=== PATIENT | female | born 1935 | race Caucasian/White ===

== ENCOUNTER 2017-07-25 15:15 | Inpatient (IN) | payer MEDICARE ==
[~2017-07-25] VITALS: Ht 166.4 cm; Wt 72.9 kg
[2017-07-25] VITALS (8 sets, daily range): BP systolic 129–154; BP diastolic 65–86; PULSE 66–91; RESP 16–18; TEMP 96.5–97.8; O2SAT 97–100
[~2017-07-25 15:15] MED LIST: ATOR10 PO; COZA50TA PO; GALA12TA6 PO; HCTZ25 PO; NAME10TA PO; [UNRECOGNIZED DRUG - CODE]
[2017-07-25] MEDS ORDERED: SODIUM CHLORIDE 0.9% FLUSH 10 ML FLUSH IVF PRN (15:30)
[2017-07-25] MEDS ORDERED: HYDR25TA5 PO (15:50)
[2017-07-25] MEDS ORDERED: NAME10TA PO (15:50)
[2017-07-25] MEDS ORDERED: METF500T PO (15:50)
[2017-07-25] MEDS ORDERED: ATOR10TA15 PO (15:50)
[2017-07-25] MEDS ORDERED: LOSA50TA PO (15:50)
[2017-07-25] MEDS ORDERED: GALA12TA PO (15:50)
[2017-07-25] MEDS ORDERED: CLAR10CA3 PO (15:50)
[2017-07-25] MEDS ORDERED: LACTCAP8 PO (15:50)
[2017-07-25] MEDS ORDERED: PANT40TA3 PO (15:50)
[2017-07-25] MEDS ORDERED: ONDA8TAB7 PO (15:50)
--- NOTE | 2017-07-25 15:52 | PD ---
HPI Chief Complaint: Altered Mental Status Time Seen by Provider: 15:28 Travel History International Travel<30 days: No Contact w/Intl Traveler<30days: No Traveled to known affect area: No History of Present Illness HPI 81-year-old female patient with history of Alzheimer's dementia, presents to the ER today brought in by her daughter, apparently had relatives visiting at home and woke up at 8:40 AM looking normal but at 9 AM they noted that she was stumbling and was having difficulty walking, had be helped up. She was also more lethargic than usual and more disoriented according to the daughter. She currently is a poor historian, does not remember exactly what happened but states that she just does not feel right. She denies any chest pains, shortness of breath, vomiting, or abdominal pain or other symptoms. Modifying Factors: None Associated Signs & Symptoms: Does not feel right, stumbling, difficulty walking Risk Factors: Elderly PFSH Past Medical History Alzheimer's Disease: Yes (diagnosed in 2011) Anemia: Yes Arthritis: Yes High Cholesterol: Yes Diminished Hearing: No Hypertension: Yes ?: Not Menopausal: Yes Tubal Ligation: Yes Past Surgical History Abdominal Surgery: Yes (12" COLON RECSECTION FOR POLYPS) Oral Surgery: Yes (WISDOM TEETH) Tonsillectomy: Yes Social History Alcohol Use: No Tobacco Use: No Substance Use: No Allergies-Medications (Allergen,Severity, Reaction): Coded Allergies: indomethacin (Unverified Allergy, Severe, MUSCLE ACHES, 02/28/17) Uncoded Allergies: CLINORIL (Allergy, Severe, VISUAL DISTURBANCES, 07/15/04) Reported Meds & Prescriptions Reported Meds & Active Scripts Active Reported Claritin (Loratadine) 10 Mg Cap 10 Mg PO 2XWEEK Ondansetron (Ondansetron HCl) 8 Mg Tab 8 Mg PO DIRECTED Probiotic (Lactobacillus Acidophilus) 10 Billion Cell Cap 1 Cap PO HS Metformin (Metformin HCl) 500 Mg Tab 500 Mg PO DAILY With a meal Pantoprazole (Pantoprazole Sodium) 40 Mg Tab 40 Mg PO DAILY Namenda (Memantine) 10 Mg Tab 10 Mg PO BID Galantamine (Galantamine Hydrobromide) 12 Mg Tab 12 Mg PO BID Losartan (Losartan Potassium) 50 Mg Tab 50 Mg PO BID Atorvastatin (Atorvastatin Calcium) 10 Mg Tab 10 Mg PO HS Hydrochlorothiazide 25 Mg Tab 25 Mg PO DAILY Review of Systems ROS Limitations: Altered Mental Status Physical Exam Narrative GENERAL: Well-developed elderly white female patient currently in mild distress. Awake and oriented 2, not oriented to time and date. SKIN: Focused skin assessment warm/dry. HEAD: Atraumatic. Normocephalic. EYES: Pupils equal and round. No scleral icterus. No injection or drainage. ENT: No nasal bleeding or discharge. Mucous membranes pink and moist. NECK: Trachea midline. No JVD. Supple. CARDIOVASCULAR: Regular rate and rhythm. No murmur appreciated. Pulses are present and equal bilaterally. RESPIRATORY: No accessory muscle use. Clear to auscultation. Breath sounds equal bilaterally. GASTROINTESTINAL: Abdomen soft, non-tender, nondistended. Hepatic and splenic margins not palpable. MUSCULOSKELETAL: No obvious deformities. No clubbing. No cyanosis. No edema. NEUROLOGICAL: Awake and lethargic, disoriented. There is notable left arm and leg weakness, barely able to lift it up off the bed. Notable facial asymmetry. Normal speech. PSYCHIATRIC: Appropriate mood and affect; insight and judgment poor. Data Data Last Documented VS Vital Signs Date Time Temp Pulse Resp B/P (MAP) Pulse Ox O2 Delivery O2 Flow Rate FiO2 07/25/17 16:31 71 18 144/66 (92) 98 Room Air 07/25/17 15:18 97.8 Orders Orders Electrocardiogram (07/25/17 15:28) Prothrombin Time / Inr (Pt) (07/25/17 15:28) Act Partial Throm Time (Ptt) (07/25/17 15:28) Complete Blood Count With Diff (07/25/17 15:28) Comprehensive Metabolic Panel (07/25/17 15:28) Troponin I (07/25/17 15:28) Urinalysis - C+S If Indicated (07/25/17 15:28) Ct Brain W/O Iv Contrast(Rout) (07/25/17 15:28) Cta Brain W Iv Contrast W 3d (07/25/17 15:28) Chest, Single Ap (07/25/17 15:28) Ecg Monitoring (07/25/17 15:28) Iv Access Insert/Monitor (07/25/17 15:28) Oximetry (07/25/17 15:28) Sodium Chloride 0.9% Flush (Ns Flush) (07/25/17 15:30) Cta Neck W Iv Contrast W 3d (07/25/17 ) Iohexol 350 Inj (Omnipaque 350 Inj) (07/25/17 18:03) Admit Order (Ed Use Only) (07/25/17 18:41) Labs Laboratory Tests Test 07/25/17 15:30 07/25/17 16:45 White Blood Count 9.8 TH/MM3 Red Blood Count 4.25 MIL/MM3 Hemoglobin 12.8 GM/DL Hematocrit 38.8 % Mean Corpuscular Volume 91.2 FL Mean Corpuscular Hemoglobin 30.0 PG Mean Corpuscular Hemoglobin Concent 32.9 % Red Cell Distribution Width 11.7 % Platelet Count 346 TH/MM3 Mean Platelet Volume 7.6 FL Neutrophils (%) (Auto) 77.8 % Lymphocytes (%) (Auto) 16.3 % Monocytes (%) (Auto) 5.2 % Eosinophils (%) (Auto) 0.3 % Basophils (%) (Auto) 0.4 % Neutrophils # (Auto) 7.7 TH/MM3 Lymphocytes # (Auto) 1.6 TH/MM3 Monocytes # (Auto) 0.5 TH/MM3 Eosinophils # (Auto) 0.0 TH/MM3 Basophils # (Auto) 0.0 TH/MM3 CBC Comment DIFF FINAL Differential Comment Prothrombin Time 10.5 SEC Prothromb Time International Ratio 1.0 RATIO Activated Partial Thromboplast Time 23.7 SEC Blood Urea Nitrogen 25 MG/DL Creatinine 0.97 MG/DL Random Glucose 215 MG/DL Total Protein 7.2 GM/DL Albumin 3.5 GM/DL Calcium Level 9.2 MG/DL Alkaline Phosphatase 148 U/L Aspartate Amino Transf (AST/SGOT) 15 U/L Alanine Aminotransferase (ALT/SGPT) 23 U/L Total Bilirubin 0.6 MG/DL Sodium Level 138 MEQ/L Potassium Level 3.1 MEQ/L Chloride Level 101 MEQ/L Carbon Dioxide Level 27.5 MEQ/L Anion Gap 10 MEQ/L Estimat Glomerular Filtration Rate 55 ML/MIN Troponin I LESS THAN 0.02 NG/ML Urine Collection Type CATH Urine Color YELLOW Urine Turbidity CLEAR Urine pH 6.0 Urine Specific [place] 1.026 Urine Protein NEG mg/dL Urine Glucose (UA) NEG mg/dL Urine Ketones NEG mg/dL Urine Occult Blood NEG Urine Nitrite NEG Urine Bilirubin NEG Urine Leukocyte Esterase NEG Urine RBC 0-3 /hpf Urine WBC 0-2 /hpf Urine Mucus FEW /lpf Microscopic Urinalysis Comment CATH-CULT NOT IND Urine Collection Time 16:45 [facility] Medical Decision Making Medical Screen Exam Complete: Yes Emergency Medical Condition: Yes Medical Record Reviewed: Yes Interpretation(s) EKG shows NSR, no ST elevation or depression, and no arrhythmias. No significant T-wave inversions. Laboratory Tests Test 07/25/17 15:30 07/25/17 16:45 Neutrophils (%) (Auto) 77.8 % (16.0-70.0) Activated Partial Thromboplast Time 23.7 SEC (24.3-30.1) Blood Urea Nitrogen 25 MG/DL (7-18) Random Glucose 215 MG/DL (74-106) Alkaline Phosphatase 148 U/L (45-117) Potassium Level 3.1 MEQ/L (3.5-5.1) Estimat Glomerular Filtration Rate 55 ML/MIN (>89) Troponin I LESS THAN 0.02 NG/ML Urine Mucus FEW /lpf (OCC) Last 24 hours Impressions Head CTA 07/25/17 1528 Signed Impressions: Service Date/Time: Tuesday, July 25, 2017 17:10 - CONCLUSION: 1. Focal severe stenosis of the right COMMUNITY HEALTH CONSULTANT with apparent collateral reconstitution of the more distal COMMUNITY HEALTH CONSULTANT suggesting chronic etiology. 2. Otherwise, unremarkable head CTA examination without evidence for large vessel occlusion as questioned. Marcial Grimes MD Head CT 07/25/17 1528 Signed Impressions: Service Date/Time: Tuesday, July 25, 2017 17:10 - CONCLUSION: 1. Stable senescent changes without acute intracranial abnormality. Marcial Grimes MD Chest X-Ray 07/25/17 1528 Signed Impressions: Service Date/Time: Tuesday, July 25, 2017 16:04 - CONCLUSION: 1. Mild diffuse interstitial prominence, likely chronic in etiology. Marcial Grimes MD Neck CTA 07/25/17 0000 Signed Impressions: Service Date/Time: Tuesday, July 25, 2017 17:10 - CONCLUSION: Minimal atherosclerosis of both carotid bifurcations without narrowing. Otherwise negative. No stenosis or dissection. Bernabe Mendoza MD Differential Diagnosis Left-sided weakness, altered mental status, facial asymmetry: CVA versus ICH versus metabolic issues Narrative Course Patient's family initially thought that she may have had an episode of hypoglycemia since she was recently started on a new diabetes medication, had tried to give her juice and try to observe her several hours at home, talked her primary care doctor, finally decided to bring her to the ER. CT of the wrist did not show any signs of acute intracranial processes. CTA did not show any signs of acute occlusion. Patient was given aspirin. At this point, plan would be to admit the patient for further evaluation. Case is discussed with Dr. Aguilar Jimenez for admission. Diagnosis Primary Impression: CVA (cerebral vascular accident) Admitting Information Admitting Physician Requests: Admit Ivory Jewell MD Jul 25, 2017 15:51
[2017-07-25 16:01] LABS: AUTOMATED NEUTROPHIL # 7.7 TH/MM3 (1.8-7.7); BASOPHIL % 0.4 % (0.0-2.0); EOSINOPHIL % 0.3 % (0.0-4.0); HEMATOCRIT 38.8 % (35.0-46.0); HEMOGLOBIN 12.8 GM/DL (11.6-15.3); LYMPH % 16.3 % (9.0-44.0); LYMPHOCYTE # 1.6 TH/MM3 (1.0-4.8); MEAN CELL VOLUME 91.2 FL (80.0-100.0); MEAN CORPUSCULAR HGB CONC 32.9 % (32.0-36.0); MEAN PLATELET VOLUME 7.6 FL (7.0-11.0); MONO % 5.2 % (0.0-8.0); MONOCYTE # 0.5 TH/MM3 (0-0.9); NEUT % 77.8 % (16.0-70.0); PLATELET COUNT 346 TH/MM3 (150-450); RED BLOOD COUNT 4.25 MIL/MM3 (4.00-5.30); RED CELL DISTRIBUTION WIDTH 11.7 % (11.6-17.2); WHITE BLOOD COUNT 9.8 TH/MM3 (4.0-11.0)
[2017-07-25 16:03] LABS: CHLORIDE 101 MEQ/L (98-107); SODIUM (NA) 138 MEQ/L (136-145)
[2017-07-25 16:06] LABS: CALCIUM 9.2 MG/DL (8.5-10.1)
[2017-07-25 16:07] LABS: ALBUMIN 3.5 GM/DL (3.4-5.0); BICARBONATE 27.5 MEQ/L (21.0-32.0); BLOOD UREA NITROGEN 25 MG/DL (7-18); GLUCOSE,RANDOM 215 MG/DL (74-106); PROTHROMBIN TIME - PATIENT 10.5 SEC (9.8-11.6)
[2017-07-25 16:10] LABS: ALT (GPT) 23 U/L (10-53); AST (GOT) 15 U/L (15-37); CREATININE 0.97 MG/DL (0.50-1.00); GLOMERULAR FILTRATION RATE 55 ML/MIN (>89)
[2017-07-25 16:11] LABS: TOTAL BILIRUBIN ADULT 0.6 MG/DL (0.2-1.0); TOTAL PROTEIN 7.2 GM/DL (6.4-8.2)
[2017-07-25 16:13] LABS: ALKALINE PHOSPHATASE 148 U/L (45-117)
[2017-07-25 16:15] LABS: TROPONIN I LESS THAN 0.02 NG/ML (0.02-0.05)
--- NOTE | 2017-07-25 16:26 | RADRPT ---
EXAM DATE/TIME: 07/25/2017 16:04 [facility] COMPARISON: No previous studies available for comparison. INDICATIONS : Weakness and confusion today. MEDICAL HISTORY : Hypertension. Alzheimer's. arthitis. anemia. SURGICAL HISTORY : Tubal ligation. Colon resection. ENCOUNTER: Initial ACUITY: 1 day PAIN SCORE: Non-responsive. LOCATION: Bilateral chest FINDINGS: Mild diffuse interstitial prominence without focal pleural or parenchymal opacities. Cardiac silhouet te is at the upper limits of normal for size. Bony thorax is intact. CONCLUSION: 1. Mild diffuse interstitial prominence, likely chronic in etiology. Marcial Grimes MD on July 25, 2017 at 16:21 Board Certified Radiologist. This report was verified electronically.
[2017-07-25 16:51] LABS: BILIRUBIN, URINE NEG (NEG); BLOOD, URINE NEG (NEG); GLUCOSE,URINE NEG (NEG); KETONE, URINE NEG (NEG); NITRITE,URINE NEG (NEG); URINE LEUKOCYTE ESTERASE NEG (NEG)
[2017-07-25] MEDS ORDERED: IOHEXOL 350 MG/ML 10 ML VIAL (for RAD DIAG) IVCONTRAST ONE ×2 (17:10→18:03)
[2017-07-25 17:30] LABS: URINE COLOR YELLOW (YELLW/STRAW)
[2017-07-25] MEDS ORDERED: METFORMIN HOLD POST IV CONTRAST SCH (17:30)
--- NOTE | 2017-07-25 17:30 | RADRPT ---
EXAM DATE/TIME: 07/25/2017 17:10 [facility] COMPARISON: CT BRAIN W/O CONTRAST, December 08, 2010, 13:17. INDICATIONS : Generalized weakness and lethargic. RADIATION DOSE: 58.69 CTDIvol (mGy) MEDICAL HISTORY : Hypercholesterolemia. Hypertension. Diabetes. SURGICAL HISTORY : Tonsillectomy. ENCOUNTER: Initial ACUITY: 1 day PAIN SCALE: 0/10 LOCATION: cranial TECHNIQUE: Multiple contiguous axial images were obtained of the head. Using automated exposure control and adj ustment of the mA and/or kV according to patient size, radiation dose was kept as low as reasonably a chievable to obtain optimal diagnostic quality images. DICOM format image data is available electro nically for review and comparison. FINDINGS: CEREBRUM: Mild diffuse cerebral volume loss. The ventricles are normal for degree of atrophy. No evidence of m idline shift, mass lesion, hemorrhage or acute infarction. No extra-axial fluid collections are seen . POSTERIOR FOSSA: The cerebellum and brainstem are intact. The 4th ventricle is midline. The cerebellopontine angle i s unremarkable. EXTRACRANIAL: The visualized portion of the orbits is intact. SKULL: The calvaria is intact. No evidence of skull fracture. CONCLUSION: 1. Stable senescent changes without acute intracranial abnormality. Marcial Grimes MD on July 25, 2017 at 17:27 Board Certified Radiologist. This report was verified electronically.
[2017-07-25 17:31] LABS: MUCUS URINE FEW /lpf (OCC); RBC, URINE 0-3 /hpf (0-3); WBC, URINE 0-2 /hpf (0-5)
--- NOTE | 2017-07-25 18:01 | RADRPT ---
EXAM DATE/TIME: 07/25/2017 17:10 [facility] COMPARISON: No previous studies available for comparison. INDICATIONS : Generalized weakness and lethargic. IV CONTRAST: 75 cc Omnipaque 350 (iohexol) IV RADIATION DOSE: 42.27 CTDIvol (mGy) MEDICAL HISTORY : Hypercholesterolemia. Hypertension. SURGICAL HISTORY : Tonsillectomy. ENCOUNTER: Initial ACUITY: 1 day PAIN SCALE: 0/10 LOCATION: cranial TECHNIQUE: Volumetric scanning was performed using a multi-row detector CT scanner. The data was post processed with a variety of visualization algorithms including full volume maximum intensity pr ojection, multi-planar sliding thin slab reformation, curved planar reformation, and surface renderin g techniques. Using automated exposure control and adjustment of the mA and/or kV according to patie nt size, radiation dose was kept as low as reasonably achievable to obtain optimal diagnostic quality images. DICOM format image data is available electronically for review and comparison. FINDINGS: Anterior circulation: Distal intracranial internal carotid arteries are patent with flow extending to the middle and anterior cerebral arteries. There is no evidence for aneurysm, vessel truncation or s tenosis, and no evidence for vascular malformation. Posterior circulation: Symmetric distal vertebral arteries with flow extending to basilar artery. The re is focal severe stenosis of the right INSIDE SALES COORDINATOR origin with apparent collateral reconstitution of the PC A. There is no evidence for aneurysm, large vessel occlusion and no evidence for vascular malformatio n. CONCLUSION: 1. Focal severe stenosis of the right INSIDE SALES COORDINATOR with apparent collateral reconstitution of the more distal INSIDE SALES COORDINATOR suggesting chronic etiology. 2. Otherwise, unremarkable head CTA examination without evidence for large vessel occlusion as questi oned. Marcial Grimes MD on July 25, 2017 at 17:55 Board Certified Radiologist. This report was verified electronically.
--- NOTE | 2017-07-25 18:58 | RADRPT ---
EXAM DATE/TIME: 07/25/2017 17:10 [facility] COMPARISON: CTA BRAIN W 3D RECON, July 25, 2017, 17:10. INDICATIONS : Generalized weakness. Lethargic IV CONTRAST: 75 cc Omnipaque 350 (iohexol) IV ; Cumulative dose for multiple exams. RADIATION DOSE: 42.27 CTDIvol (mGy) MEDICAL HISTORY : Hypertension. Hypercholesterolemia. SURGICAL HISTORY : Tonsillectomy. ENCOUNTER: Initial ACUITY: 1 day PAIN SCALE: 0/10 LOCATION: neck Elevated flow velocities and ICA/CCA ratios have been found to correlate with increased degrees of vessel stenosis, calculated as percentage of diameter relative to a normal segment of distal ICA/CCA. TECHNIQUE: Volumetric scanning was performed using a multirow detector CT scanner. The data was post processed with a variety of visualization algorithms including full-volume maximum intensity projection, multip lanar sliding thin-slab reformation, curved-planar reformation, and surface-rendering techniques. Us ing automated exposure control and adjustment of the mA and/or kV according to patient size, radiatio n dose was kept as low as reasonably achievable to obtain optimal diagnostic quality images. DICOM f ormat image data is available electronically for review and comparison. FINDINGS: AORTIC ARCH: There is a three-vessel origin of the great vessels from the aorta. No evidence of ostial narrowing. RIGHT CAROTID: Trace plaque of the bulb and proximal internal carotid artery.. LEFT CAROTID: Trace plaque of the bulb and proximal internal carotid artery. VERTEBRALS: The vertebral arteries have a symmetric diameter. No stenotic lesions are seen. CONCLUSION: Minimal atherosclerosis of both carotid bifurcations without narrowing. Otherwise negative. No stenos is or dissection. Bernabe Mendoza MD on July 25, 2017 at 18:53 Board Certified Radiologist. This report was verified electronically.
[2017-07-25] MEDS ORDERED: SODIUM CHLOR 0.9% 1000 ML INJ 1,000 ML IV SCH (19:54)
[2017-07-25] MEDS ORDERED: DEXTROSE 50% IN WATER 50 ML VIAL(D50) IV PUSH PRN (20:00)
[2017-07-25] MEDS ORDERED: ENALAPRILAT 1.25 MG/ML VIAL IV PUSH PRN (20:00)
[2017-07-25] MEDS ORDERED: GLUCAGON 1 MG/ML VIAL OTHER PRN (20:00)
[2017-07-25] MEDS ORDERED: SODIUM CHLORIDE 0.9% FLUSH 10 ML FLUSH IV FLUSH PRN (20:00)
--- NOTE | 2017-07-25 20:54 | MH ---
cc: PATRICK ENG M.D. DATE OF ADMISSION 07/25/2017 REASON FOR ADMISSION Altered mental status, possible CVA. HISTORY OF PRESENT ILLNESS Ms. Chi is a very pleasant 81-year-old female who was brought into the emergency room by her family, waking this morning and shortly thereafter becoming more lethargic, confused and weak. The family states that she woke up, took her morning medications and went out to the [facility] to visit with family and as she was coming into the house slumped against the hallway towards the left and had trouble maintaining her balance. She complained of weakness and, according to the family, was much more lethargic. Apparently, she has had similar episodes like this in the past which have been felt to be due to low blood sugar for which she has been given sugar with some improvement. The family felt that this was another one of those episode and tried to supply her with sugar. However, she did not seem to be responding. They tell me that she was requiring full assistance to get up. She was not really able to ambulate. She would slump more to the left side. They said she was able to speak. They denied any slurred speech. She does have a history of dementia and according to them she seemed to be a little bit more confused than normal. Prior to this, she was actually doing well according to them, active with good appetite, socializing. The day before she had felt a little bit poorly on Monday, but the family states that by Monday she was back to normal again. She has never had a stroke or CVA. As stated, the episodes that she has had similar to this one have been short lived. PAST MEDICAL HISTORY 1. Hypertension, 2. Hyperlipidemia, 3. Diabetes apparently diet-controlled and recently, however, she has been started on oral agents for the last several months. 4. Osteoarthritis 5. Alzheimer's dementia for which she sees a neurologist. 6. She also has reflux. PAST SURGICAL HISTORY 1. Colon resection for polyp in the past 2. Tonsillectomy, 3. Tubal ligation. ALLERGIES CLINORIL INDOMETHACIN MEDICATIONS At home includes 1. Claritin 10 mg daily twice a week 2. Galantamine 12 mg twice a day 3. Atorvastatin 10 mg daily. 4. Losartan 50 mg twice a day 5. Namenda 10 mg twice a day, 6. Hydrochlorothiazide 25 mg daily. 7. Probiotic 8. Zofran which she really has not been taking that much of lately 9. Pantoprazole 40 mg daily, 10. Metformin 500 mg daily. HABITS She does not consume alcohol or smoke. SOCIAL HISTORY She lives with a grandson and other family members who care for her. She actually had family visiting from out-of-town today. 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 REVIEW OF SYSTEMS It would appear from the family that this is fairly unremarkable. PHYSICAL EXAMINATION VITAL SIGNS: Temperature is 97.8, pulse is 68, respirations 16, blood pressure is 129/65, pulse ox is 97%. GENERAL: A very pleasant woman lying in the ER cot flat. HEENT: She is normocephalic atraumatic. She had a little bit of inward variation of her right eye. Clear oropharynx. She has a little bit of chocolate on her lower lip. NECK: Supple. I hear no bruits. LUNGS: Clear to auscultation bilaterally. HEART: Regular. I hear no ectopy or murmurs. ABDOMEN: Good bowel sounds in all four quadrants. EXTREMITIES: No clubbing, cyanosis or edema. She is weaker in the left upper and lower extremity. Strength seems to be more proximal. She did appear to have a little bit of facial droop. LABORATORY DATA White count of 9.8, hemoglobin of 12.8, hematocrit of 38.8, platelet count of 346. PT was 10.5, INR was one, PTT was 23.7. Sodium was 138, potassium was 3.1, BUN was 25 with a creatinine of 0.97, random glucose was 215. Troponin was less than 0.02. UA was negative. IMAGING STUDIES Chest x-ray showed mild diffuse interstitial prominence felt to be chronic. Head CT showed stable changes without acute intracranial abnormality. CTA showed focal severe stenosis of the right B2B SALES MANAGER with apparent collateral constitution of the more distal B2B SALES MANAGER suggesting chronic etiology. Otherwise unremarkable head CTA examination without evidence for large vessel occlusion. Neck CTA showed minimal atherosclerosis of both carotid bifurcations without narrowing otherwise negative. No stenosis or dissection. ASSESSMENT/PLAN A 81-year-old female presenting to the emergency room with apparent CVA. At this point, the patient has been admitted. We will continue with a workup. We will be ordering an MRI on her as well. She has been started on aspirin. Head of bed is flat. We will hold her blood pressure medications and monitor closely over the next 12-24 hours. Order an echo and Holter monitor. She does have a neurologist who already sees her for her also Alzheimer's, Dr. Monzon. I will request a consultation for his part. Further recommendations as the case develops. MD BRE Chong/ /8:02 PM /8:34 PM
[2017-07-25] MEDS: INSULIN ASPART SUPPLEMENTAL SCALE SQ SCH (21:00)
[2017-07-25] MEDS: PANTOPRAZOLE SODIUM 40 MG VIAL IV PUSH SCH (22:19)
[2017-07-25] MEDS: SODIUM CHLORIDE 0.9% FLUSH 10 ML FLUSH IV FLUSH SCH (22:20)
[2017-07-25] MEDS: ATORVASTATIN 10 MG TAB PO SCH (22:24)
[2017-07-26] VITALS (8 sets, daily range): BP systolic 133–154; BP diastolic 65–79; PULSE 64–71; RESP 16–20; TEMP 96.6–98.2; O2SAT 96–99
[2017-07-26] MEDS: SODIUM CHLORIDE 0.9% FLUSH 10 ML FLUSH IV FLUSH SCH ×2 (09:00→21:00)
[2017-07-26] MEDS: INSULIN ASPART SUPPLEMENTAL SCALE SQ SCH ×4 (09:25→21:00)
[2017-07-26] MEDS: ASPIRIN 325 MG TAB PO SCH (09:26)
[2017-07-26 09:49] LABS: CHOLESTEROL/ HDL RATIO 3.77 RATIO; HDL CHOLESTEROL 41.6 MG/DL (40.0-60.0)
[2017-07-26] MEDS ORDERED: IOHEXOL 350 MG/ML 10 ML VIAL (for RAD DIAG) IVCONTRAST ONE (10:29)
[2017-07-26] MEDS: NS + KCL 20 MEQ INJ 1,000 ML IV SCH (12:36)
--- NOTE | 2017-07-26 13:54 | MB ---
cc: DAVID JOSE M.D. DATE OF CONSULTATION 07/26/2017 HISTORY OF PRESENT ILLNESS The patient is a 81-year-old seen in neurological consultation. The patient came to the hospital yesterday. She was observed to be weak, more confused, more lethargic, and there was some question of whether or not her symptoms were due to low blood sugar. She was started on diabetes medication recently. She was observed to have some left-sided weakness, probably. She was brought to the hospital and today the daughter describes that the patient seems to be even worse. The patient was not able to stand, speaks more slurred, maintaining eyes closed. The patient has a history of Alzheimer's disease and has been on medication for this. Recent diabetes mellitus. She does not take any blood thinners and there are no heart related problems. NEUROLOGICAL EXAMINATION Exam shows the patient to be awake, eyes mostly closed. When I called her attention she opens her eyes and looks at me. She has a dense left hemianopsia. There is left facial weakness which is mild. There is left hemiparesis and left-sided neglect on simultaneous bilateral stimuli. She does start raising the left arm and leg but she is at least moderately weak, arm worse than leg on the left side. Reflexes are 1+. Plantar response is extensor on the left and the ankle reflexes are diminished. The patient is disoriented to age and place. Speech is limited to answering some simple questions. She denies any pain or headaches. IMAGING Ancillary data was reviewed. The patient had a CT brain described as negative yesterday. The CT angio head and neck showed carotids and vertebral arteries without any significant stenosis. The right posterior cerebral artery showed stenosis though the radiologist thought this was chronic because of the collaterals. ASSESSMENT 1. Acute ischemic stroke right hemisphere, probably right posterior cerebral artery infarct. 2. 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 3. Chronic dementia/Alzheimer's disease. ASSESSMENT AND RECOMMENDATION Discussed with the daughter at bedside. The patient is scheduled for MRI brain. She was started on aspirin yesterday and will continue this. Checking lipid profile and echocardiogram. Will check heart monitor to look for any underlying atrial fibrillation. I will follow the neurological course. The recovery will be more difficult because of the underlying dementia. Will request SCDs for the time being as well. Thank you for asking us to assist in her care. MD VI Burgess/MALINI /1:08 PM /1:25 PM
[2017-07-26 14:09] LABS: HEMOGLOBIN A1C 6.8 % (4.3-6.0)
--- NOTE | 2017-07-26 15:37 | RADRPT ---
EXAM DATE/TIME: 07/26/2017 14:41 [facility] COMPARISON: No previous studies available for comparison. INDICATIONS : CVA. Left sided weakness. MEDICAL HISTORY : Hypertension. Hypertension. Dementia. SURGICAL HISTORY : Colon resection. ENCOUNTER: Initial ACUITY: 2 day PAIN SCORE: LOCATION: head TECHNIQUE: Multiplanar, multisequence MRI of the brain was performed without contrast. FINDINGS: Large area of restricted diffusion is present involving the right occipital cortex extending into the right mid temporal region as well as the putamen and right thalamus involving posterior limb interna l capsule. This is not associated with the parenchymal hemorrhage. Extensive periventricular white matter changes are noted. Ventricular size is appropriate. There no extra-axial fluid collections appreciated. Posterior fossa is unremarkable. Bibasilar artery is patent Orbits sinuses are unremarkable. CONCLUSION: Acute ischemic event involving the right proximal region extending into the basalgang izabella posterior limb internal capsule without hemorrhage. Marked periventricular matter changes. Kodi Mora MD FACR on July 26, 2017 at 15:33 Board Certified Radiologist. This report was verified electronically.
--- NOTE | 2017-07-26 15:40 | RADRPT ---
EXAM DATE/TIME: 07/26/2017 14:41 [place] COMPARISON: No previous studies available for comparison. INDICATIONS : CVA. Left sided weakness. MEDICAL HISTORY : Diabetes mellitus type 2. Hypertension. Dementia. SURGICAL HISTORY : Colon resection. ENCOUNTER: Initial ACUITY: 2 day PAIN SCORE: 0/10 LOCATION: head Please note a normal MRA of the brain does not entirely exclude the possibility of a small aneurysm, nor the possibility of distal intracranial vessel disease. TECHNIQUE: 3D time of flight MRA was performed. Source images, multiplanar STS MIP, and 3D volume MIP reconstru ctions were reviewed. FINDINGS: There is nonvisualization of the right posterior cerebral artery. The anterior cerebral arteries and middle cerebral arteries are well-visualized with moderate atherosclerotic intracranial vascular dis ease. BI-RADS artery both vertebral arteries are patent. CONCLUSION: Nonvisualization right posterior cerebral artery. Kodi Mora MD FACR on July 26, 2017 at 15:37 Board Certified Radiologist. This report was verified electronically.
--- NOTE | 2017-07-26 19:23 | HHI.PR ---
Subjective Remarks no complaints Objective Vitals Vital Signs Date Time Temp Pulse Resp B/P (MAP) Pulse Ox O2 Delivery O2 Flow Rate FiO2 07/26/17 08:23 99 21 07/26/17 07:18 67 07/26/17 00:00 98.2 71 20 154/74 (100) 99 07/25/17 23:00 66 07/25/17 21:45 99 21 07/25/17 21:20 97.0 66 18 143/86 (105) 100 07/25/17 20:55 67 16 154/71 (98) 96 07/25/17 20:00 66 07/26/17 07/26/17 07/27/17 15:00 23:00 07:00 Intake Total 420 ml 200 ml Output Total 500 ml Balance 420 ml -300 ml Intake Oral 200 ml IV Total 420 ml Output Urine Total 500 ml Result Diagram: 07/25/17 1530 07/25/17 1530 Imaging Last Impressions Head Magnetic Resonance Angiography 07/26/17 0000 Signed Impressions: Service Date/Time: Wednesday, July 26, 2017 14:41 - CONCLUSION: Nonvisualization right posterior cerebral artery. Kodi Mora MD FACR Brain MRI 07/26/17 0000 Signed Impressions: Service Date/Time: Wednesday, July 26, 2017 14:41 - CONCLUSION: Acute ischemic event involving the right proximal region extending into the basalganglia posterior limb internal capsule without hemorrhage. Marked periventricular matter changes. Kodi Mora MD FACR Head CTA 07/25/17 1528 Signed Impressions: Service Date/Time: Tuesday, July 25, 2017 17:10 - CONCLUSION: 1. Focal severe stenosis of the right GRADES 1 THROUGH 5 TEACHER with apparent collateral reconstitution of the more distal GRADES 1 THROUGH 5 TEACHER suggesting chronic etiology. 2. Otherwise, unremarkable head CTA examination without evidence for large vessel occlusion as questioned. Marcial Grimes MD Head CT 07/25/17 1528 Signed Impressions: Service Date/Time: Tuesday, July 25, 2017 17:10 - CONCLUSION: 1. Stable senescent changes without acute intracranial abnormality. Marcial Grimes MD Chest X-Ray 07/25/17 1528 Signed Impressions: Service Date/Time: Tuesday, July 25, 2017 16:04 - CONCLUSION: 1. Mild diffuse interstitial prominence, likely chronic in etiology. Marcial Grimes MD Neck CTA 07/25/17 0000 Signed Impressions: Service Date/Time: Tuesday, July 25, 2017 17:10 - CONCLUSION: Minimal atherosclerosis of both carotid bifurcations without narrowing. Otherwise negative. No stenosis or dissection. Bernabe Mendoza MD Objective Remarks lying in bed slightly disconjugate gaze cta rrr no c/c/e muscle strength minimally improved on the left, slight facial droop A/P Problem List: (1) CVA (cerebral vascular accident) ICD Codes: I63.9 - Cerebral infarction, unspecified Status: Acute Plan: continue asa, atorvastatin and control of diabetes, will resume lisinopril in am will need rehab (2) Alzheimer's dementia ICD Codes: G30.9 - Alzheimer's disease, unspecified Status: Chronic Plan: resume namenda and galantamine (3) Hypertension ICD Codes: I10 - Essential (primary) hypertension Plan: resume losartan in am cont to hold hctz (4) Hyperlipidemia ICD Codes: E78.5 - Hyperlipidemia, unspecified Status: Chronic Plan: on atorvastatin (5) Diabetes type 2, controlled ICD Codes: E11.9 - Type 2 diabetes mellitus without complications Status: Chronic Plan: metformin on hold on diabetic diet and sliding scale Problem Qualifiers (1) CVA (cerebral vascular accident): (2) Alzheimer's dementia: (3) Hypertension: Qualified Codes: I10 - Essential (primary) hypertension (4) Hyperlipidemia: Qualified Codes: E78.00 - Pure hypercholesterolemia, unspecified Kenyatta Barry MD Jul 26, 2017 19:23
[2017-07-26] MEDS ORDERED: POTASSIUM CHLORIDE 20 MEQ CONTROLLED RELEASE TAB PO ONE (19:30)
--- NOTE | 2017-07-26 19:53 | ECHRPT ---
Indication: CVA/TIA CONCLUSIONS Normal left ventricular size. Mild concentric left ventricular hypertrophy. Normal LV systolic function (EF 60%). The right atrial size is moderately dilated. No atrial level shunt is demonstrated by color flow Doppler interrogation. [id number] mitral valve regurgitation. The mitral valve regurgitation jet is directed posteriorly. Mild mitral annular calcification. Mild tricuspid regurgitation. BP: 154 / 74 HR: Rhythm: Sinus MEASUREMENTS (Male / Female) Normal Values Technical Quality:Fair 2D ECHO LV Diastolic Diameter PLAX 4.9 cm 4.2 - 5.9 / 3.9 - 5.3 cm LV Systolic Diameter PLAX 3.4 cm IVS Diastolic Thickness 1.2 cm 0.6 - 1.0 / 0.6 - 0.9 cm LVPW Diastolic Thickness 1.2 cm 0.6 - 1.0 / 0.6 - 0.9 cm LV Relative Wall Thickness 0.5 RV Internal Dim ED PLAX 2.3 cm LVOT Diameter 1.7 cm Aortic Root Diameter 2.6 cm LA Systolic Diameter LX 2.8 cm 3.0 - 4.0 / 2.7 - 3.8 cm M-MODE AV Cusp Separation MM 1.5 cm DOPPLER AV Peak Velocity 175.0 cm/s AV Peak Gradient 12.3 mmHg AV Mean Gradient 8.0 mmHg AV Velocity Time Integral 41.7 cm LVOT Peak Velocity 81.2 cm/s LVOT Peak Gradient 2.6 mmHg LVOT Velocity Time Integral 17.5 cm AV Area Cont Eq vti 1.0 cm AV Area Cont Eq pk 1.1 cm Mitral E Point Velocity 85.9 cm/s Mitral A Point Velocity 86.4 cm/s Mitral E to A Ratio 1.0 LV E' Lateral Velocity 6.4 cm/s Mitral E to LV E' Lateral Ratio 13.4 LV E' Septal Velocity 4.9 cm/s Mitral E to LV E' Septal Ratio 17.6 TR Peak Velocity 302.0 cm/s TR Peak Gradient 36.5 mmHg Right Atrial Pressure 10.0 mmHg Pulmonary Artery Systolic Pressu 46.5 mmHg Right Ventricular Systolic Press 46.5 mmHg PV Peak Velocity 49.6 cm/s PV Peak Gradient 1.0 mmHg FINDINGS LEFT VENTRICLE Normal left ventricular size. Mild concentric left ventricular hypertrophy. The left ventricular systolic function is normal with an estimated ejection fraction of 60%. RIGHT VENTRICLE Normal right ventricular size and systolic function. LEFT ATRIUM The left atrial size is normal. RIGHT ATRIUM The right atrial size is moderately dilated. ATRIAL SEPTUM No atrial level shunt is demonstrated by color flow Doppler interrogation. AORTA The aortic root and proximal ascending aorta are normal in size on limited imaging. MITRAL VALVE Hahy-iw-ahppjviw mitral valve regurgitation. The mitral valve regurgitation jet is directed posteriorly. Mild mitral annular calcification. AORTIC VALVE Trileaflet aortic valve. No aortic valve stenosis or regurgitation. TRICUSPID VALVE Structurally normal tricuspid valve. Mild TR. PULMONARY VALVE No pulmonary valve regurgitation or stenosis. VESSELS The inferior vena cava is normal in size. PERICARDIUM No pericardial effusion. Lucretia Stanley MD, FACC (Electronically Signed) Final Date:26 July 2017 19:52
[2017-07-26] MEDS: PANTOPRAZOLE SODIUM 40 MG VIAL IV PUSH SCH (21:01)
[2017-07-26] MEDS: MEMANTINE HCL 10 MG TAB PO SCH (21:01)
[2017-07-26] MEDS: ATORVASTATIN 10 MG TAB PO SCH (21:01)
[2017-07-26] MEDS: GALANTAMINE HYDROBROMIDE 4 MG TAB PO SCH (21:02)
--- NOTE | 2017-07-26 22:05 | EKG ---
Date Performed: 07/25/2017 Time Performed: 15:21:56 PTAGE: 81 years EKG: Sinus rhythm MODERATE ST DEPRESSION ABNORMAL ECG PREVIOUS TRACING : 06/19/2013 09.56 Compared to the previous tracing rate slower DOCTOR: Lucretia Stanley Interpretating Date/Time 07/26/2017 22:04:34
[2017-07-27] VITALS (7 sets, daily range): BP systolic 130–155; BP diastolic 71–85; PULSE 66–80; RESP 16–20; TEMP 96.3–98.7; O2SAT 95–98
[2017-07-27] MEDS: NS + KCL 20 MEQ INJ 1,000 ML IV SCH (01:11)
[2017-07-27] MEDS: INSULIN ASPART SUPPLEMENTAL SCALE SQ SCH ×4 (08:00→21:00)
[2017-07-27] MEDS: ASPIRIN 325 MG TAB PO SCH (08:41)
[2017-07-27] MEDS: MEMANTINE HCL 10 MG TAB PO SCH ×2 (08:41→23:04)
[2017-07-27] MEDS: SODIUM CHLORIDE 0.9% FLUSH 10 ML FLUSH IV FLUSH SCH ×2 (08:42→23:05)
[2017-07-27 09:09] LABS: BICARBONATE 27.3 MEQ/L (21.0-32.0); CALCIUM 8.3 MG/DL (8.5-10.1); CREATININE 0.8 MG/DL (0.50-1.00)
--- NOTE | 2017-07-27 12:42 | HHI.PR ---
Subjective Remarks no complaints Objective Vitals Vital Signs Date Time Temp Pulse Resp B/P (MAP) Pulse Ox O2 Delivery O2 Flow Rate FiO2 07/27/17 08:00 98.1 80 18 141/72 (95) 95 07/27/17 04:00 96.3 69 16 155/85 (108) 96 07/27/17 00:00 96.3 66 16 146/72 (96) 97 07/26/17 20:05 96 21 07/26/17 20:00 97.8 69 16 138/65 (89) 97 07/26/17 20:00 70 07/26/17 16:00 97.6 64 18 134/74 (94) 96 Result Diagram: 07/25/17 1530 07/27/17 0625 Imaging Last Impressions Head Magnetic Resonance Angiography 07/26/17 0000 Signed Impressions: Service Date/Time: Wednesday, July 26, 2017 14:41 - CONCLUSION: Nonvisualization right posterior cerebral artery. Kodi Mora MD FACR Brain MRI 07/26/17 0000 Signed Impressions: Service Date/Time: Wednesday, July 26, 2017 14:41 - CONCLUSION: Acute ischemic event involving the right proximal region extending into the basalganglia posterior limb internal capsule without hemorrhage. Marked periventricular matter changes. Kodi Mora MD FACR Head CTA 07/25/17 1528 Signed Impressions: Service Date/Time: Tuesday, July 25, 2017 17:10 - CONCLUSION: 1. Focal severe stenosis of the right UNIX DEVELOPER with apparent collateral reconstitution of the more distal UNIX DEVELOPER suggesting chronic etiology. 2. Otherwise, unremarkable head CTA examination without evidence for large vessel occlusion as questioned. Marcial Grimes MD Head CT 07/25/17 1528 Signed Impressions: Service Date/Time: Tuesday, July 25, 2017 17:10 - CONCLUSION: 1. Stable senescent changes without acute intracranial abnormality. Marcial Grimes MD Chest X-Ray 07/25/17 1528 Signed Impressions: Service Date/Time: Tuesday, July 25, 2017 16:04 - CONCLUSION: 1. Mild diffuse interstitial prominence, likely chronic in etiology. Marcial Grimes MD Neck CTA 07/25/17 0000 Signed Impressions: Service Date/Time: Tuesday, July 25, 2017 17:10 - CONCLUSION: Minimal atherosclerosis of both carotid bifurcations without narrowing. Otherwise negative. No stenosis or dissection. Bernabe Mendoza MD Objective Remarks lying in bed, sleeping but arousable cta rrr no c/c/e muscle strength minimally improved on the left, slight facial droop A/P Problem List: (1) CVA (cerebral vascular accident) ICD Codes: I63.9 - Cerebral infarction, unspecified Status: Acute Plan: continue asa, atorvastatin and control of diabetes, losartan in am being evaluated by [facility] [place] (2) Alzheimer's dementia ICD Codes: G30.9 - Alzheimer's disease, unspecified Status: Chronic Plan: resume namenda and galantamine (3) Hypertension ICD Codes: I10 - Essential (primary) hypertension Plan: resumed losartan in am (4) Hyperlipidemia ICD Codes: E78.5 - Hyperlipidemia, unspecified Status: Chronic Plan: on atorvastatin (5) Diabetes type 2, controlled ICD Codes: E11.9 - Type 2 diabetes mellitus without complications Status: Chronic Plan: metformin on hold doing well with diabetic diet Problem Qualifiers (1) CVA (cerebral vascular accident): (2) Alzheimer's dementia: (3) Hypertension: Qualified Codes: I10 - Essential (primary) hypertension (4) Hyperlipidemia: Qualified Codes: E78.00 - Pure hypercholesterolemia, unspecified Kenyatta Barry MD Jul 27, 2017 12:42
[2017-07-27] MEDS: GALANTAMINE HYDROBROMIDE 4 MG TAB PO SCH ×2 (13:15→23:05)
[2017-07-27] MEDS: LOSARTAN 50 MG TAB PO SCH ×2 (13:15→23:04)
[2017-07-27] MEDS: ATORVASTATIN 10 MG TAB PO SCH (23:04)
[2017-07-27] MEDS: PANTOPRAZOLE SODIUM 40 MG VIAL IV PUSH SCH (23:05)
[2017-07-28] VITALS: BP 150/87; PULSE 67; RESP 16; TEMP 98.3; O2SAT 97
[2017-07-28 04:00] VITALS: BP 138/80; PULSE 66; RESP 16; TEMP 96.5; O2SAT 97
[2017-07-28] MEDS: INSULIN ASPART SUPPLEMENTAL SCALE SQ SCH ×2 (07:59→12:00)
[2017-07-28 08:00] VITALS: BP 153/74; PULSE 64; RESP 16; TEMP 96.9; O2SAT 97
[2017-07-28] MEDS: LOSARTAN 50 MG TAB PO SCH (08:20)
[2017-07-28] MEDS: ASPIRIN 325 MG TAB PO SCH (08:20)
[2017-07-28] MEDS: MEMANTINE HCL 10 MG TAB PO SCH (08:21)
[2017-07-28] MEDS: GALANTAMINE HYDROBROMIDE 4 MG TAB PO SCH (08:23)
[2017-07-28] MEDS: SODIUM CHLORIDE 0.9% FLUSH 10 ML FLUSH IV FLUSH SCH (08:23)
[2017-07-28 10:07] VITALS: PULSE 54
[2017-07-28 12:00] VITALS: BP 159/77; PULSE 58; RESP 14; TEMP 98.2; O2SAT 97
--- NOTE | 2017-07-28 12:21 | HHI.PR ---
Subjective Remarks No new complaints Objective Vitals Vital Signs Date Time Temp Pulse Resp B/P (MAP) Pulse Ox O2 Delivery O2 Flow Rate FiO2 07/28/17 10:07 54 07/28/17 08:00 96.9 64 16 153/74 (100) 97 07/28/17 04:00 96.5 66 16 138/80 (99) 97 07/28/17 00:00 98.3 67 16 150/87 (108) 97 07/27/17 20:00 98.7 75 20 133/71 (91) 98 07/27/17 20:00 71 07/27/17 16:00 98.2 80 18 130/71 (90) 98 07/28/17 07/28/17 07/29/17 15:00 23:00 07:00 Intake Total 180 ml Balance 180 ml Intake Oral 180 ml Result Diagram: 07/25/17 1530 07/27/17 0625 Imaging Last Impressions Head Magnetic Resonance Angiography 07/26/17 0000 Signed Impressions: Service Date/Time: Wednesday, July 26, 2017 14:41 - CONCLUSION: Nonvisualization right posterior cerebral artery. Kodi Mora MD FACR Brain MRI 07/26/17 0000 Signed Impressions: Service Date/Time: Wednesday, July 26, 2017 14:41 - CONCLUSION: Acute ischemic event involving the right proximal region extending into the basalganglia posterior limb internal capsule without hemorrhage. Marked periventricular matter changes. Kodi Mora MD FACR Head CTA 07/25/17 1528 Signed Impressions: Service Date/Time: Tuesday, July 25, 2017 17:10 - CONCLUSION: 1. Focal severe stenosis of the right LABORER PETROLEUM REFINERY with apparent collateral reconstitution of the more distal LABORER PETROLEUM REFINERY suggesting chronic etiology. 2. Otherwise, unremarkable head CTA examination without evidence for large vessel occlusion as questioned. Marcial Grimes MD Head CT 07/25/17 1528 Signed Impressions: Service Date/Time: Tuesday, July 25, 2017 17:10 - CONCLUSION: 1. Stable senescent changes without acute intracranial abnormality. Marcial Grimes MD Chest X-Ray 07/25/17 1528 Signed Impressions: Service Date/Time: Tuesday, July 25, 2017 16:04 - CONCLUSION: 1. Mild diffuse interstitial prominence, likely chronic in etiology. Marcial Grimes MD Neck CTA 07/25/17 0000 Signed Impressions: Service Date/Time: Tuesday, July 25, 2017 17:10 - CONCLUSION: Minimal atherosclerosis of both carotid bifurcations without narrowing. Otherwise negative. No stenosis or dissection. Bernabe Mendoza MD Objective Remarks lying in bed, eyes closed but listening cta rrr no c/c/e muscle strength minimally improved on the left but unchanged fromo yesterday, slight facial droop A/P Problem List: (1) CVA (cerebral vascular accident) ICD Codes: I63.9 - Cerebral infarction, unspecified Status: Acute Plan: continue asa, atorvastatin and control of diabetes, losartan in am accepted by [facility] (2) Alzheimer's dementia ICD Codes: G30.9 - Alzheimer's disease, unspecified Status: Chronic Plan: resumed namenda and galantamine (3) Hypertension ICD Codes: I10 - Essential (primary) hypertension Plan: resumed losartan in am , hctz on hold due to hypokalemia, monitor need (4) Hyperlipidemia ICD Codes: E78.5 - Hyperlipidemia, unspecified Status: Chronic Plan: on atorvastatin (5) Diabetes type 2, controlled ICD Codes: E11.9 - Type 2 diabetes mellitus without complications Status: Chronic Plan: metformin on hold doing well with diabetic diet Discharge Planning accepted at [facility] Problem Qualifiers (1) CVA (cerebral vascular accident): (2) Alzheimer's dementia: (3) Hypertension: Qualified Codes: I10 - Essential (primary) hypertension (4) Hyperlipidemia: Qualified Codes: E78.00 - Pure hypercholesterolemia, unspecified Kenyatta Barry MD Jul 28, 2017 12:21
[2017-07-28] MEDS ORDERED: ASA325 PO (13:55)
--- NOTE | 2017-07-29 16:53 | HM ---
Date Performed: 07/26/2017 Time Performed: 17:09:00 HOOKUP DATE: 07/26/17 05:09:00 PM Wed ANALYSIS START TIME: 07/26/2017 5:14:00 PM ANALYSIS END TIME: 07/27/2017 5:18:00 PM PATIENT AGE: 81 PATIENT HEIGHT: 64 PATIENT WEIGHT: 165 DRUG LIST: room # [id number] PATIENT DIAGNOSIS: CVA TEST NARRATIVE: The patient's average heart rate was 75 BPM. Heart rates greater than 120 B PM were noted 1% of the time. Heart rates less than 50 BPM were noted < 1% of the time. 7 pauses exceeding 2.0 seconds were noted. The longest pause of 2.1 seconds occurred at 09:29:37 AM [place]. 1224 ventricular ectopics, which represented 1% of the total beat count, were noted. The highest ve ntricular ectopic frequency occurred from 04:00 PM to 05:00 PM Juliann. During this time 207 VE(s) occur red. Ventricular ectopics were observed as 1208 isolated beat(s), as 5 couplet(s) and as 1 run(s). Some of the ventricular beats occurred in bigeminal cycles. 34 supraventricular ectopics, which r epresented < 1% of the total beat count, were noted. The highest supraventricular ectopic frequency occurred from 04:00 PM to 05:00 PM Juliann. During this time 13 SVE(s) occurred. Multiple episodes o f ST depression (defined as -1.0 mm or more) were noted in channel 1. The maximum depression of -4. 3 mm occurred at 05:56:41 PM Wed. Multiple episodes of ST depression (defined as -1.0 mm or more) w ere noted in channel 2. The maximum depression of -4.1 mm occurred at 06:00:24 PM Wed. Multiple epi sodes of ST depression (defined as -1.0 mm or more) were noted in channel 3. The maximum depression of -3.8 mm occurred at 06:00:23 PM Wed. NO DIARY RETURNED TEST INTERPRETATION: The rhythm alternated between atrial fibrillation and normal Sinus rhythm . The average HR is 75, minimum HR is 50 while the maximum HR is 158 with the atrial fibrillation. Th ere were 7 pauses, the longest one was 2.1 seconds. There are occasional ventricular premature beats. There was one 6-beat run of ventricular rhythm at 117 bpm at 1256. There was no diary returned. [facility] monitor is significant for intermittent atrial fibrillation, including atrial fibrillation with ra pid ventricular rate. Signed by : Antwan Lea
== END 2017-07-28 16:20 | DRG 65 ==
LOC: PHED 15:15 → PHEDA 18:42 → PH3A 21:00
PROVIDERS: ADMIT Legal Medicine; ATTEND Legal Medicine
DX: I63.531 Cerebral infarction due to unspecified occlusion or stenosis of right posterior cerebral artery (principal); G81.94 Hemiplegia, unspecified affecting left nondominant side; R41.4 Neurologic neglect syndrome; H53.462 Homonymous bilateral field defects, left side; R29.810 Facial weakness; I10 Essential (primary) hypertension; G30.9 Alzheimer's disease, unspecified; F02.80 Dementia in other diseases classified elsewhere, unspecified severity, without behavioral disturbance, psychotic disturbance, mood disturbance, and anxiety; E11.9 Type 2 diabetes mellitus without complications; Z79.84 Long term (current) use of oral hypoglycemic drugs; E78.5 Hyperlipidemia, unspecified
CPT/HCPCS: 70450; 70496; 70498; 70544; 70551; 71045; 80048; 80053; 80061; 81001; 82948; 83036; 84484; 85025; 85610; 85730; 93005; 93225; 93226; 93306; 99285; C9113; J1815; J3480; J7030; Q9967